=== PATIENT | male | born 1965 | race Two or more races ===

== ENCOUNTER 2019-02-07 20:45 | Inpatient (IN) | payer MEDICAID ==
[~2019-02-07] VITALS: Ht 165.1 cm; Wt 87.1 kg
[2019-02-07 20:56] VITALS: BP 122/79
--- NOTE | 2019-02-07 20:56 | NUR ---
TO BED # 04 AMBULATORY
--- NOTE | 2019-02-07 21:00 | NUR ---
PT CAME INTO ER WITH C/O RIGHT ARM PAIN AND CHEST PAIN X 2 HOURS. PT STATED HE HAS CARDIAC HX AND HAS HAD A FEW HEART ATTACKS WTHIN 20 YEARS. PT STATED HE A[place]O HAS STENTS PLACED IN HEART. PT IS ALERT AND ORIENTED X 4. PT STATES HIS AWILDA IS LEVEL 6/10 AND HAS PRESSURE IN THE LEFT SIDE OF CHEST. MED HX OF HYPERLIPIDEMIA, CARDIAC, AND DM. SKIN IS DRY AND WARM TO TOUCH, NO SIGN OF DIAPHORESIS OR SOB. LUNG SOUNDS CLEAR BILATERAL. ER MD MADE AWARE OF STATUS. SAFETY MEASURES IN PLACE.
[2019-02-07] MEDS ORDERED: NACL 0.9% 1,000 ML IV ONE (21:15)
[2019-02-07] MEDS ORDERED: ASPIRIN 81 MG TAB.CHEW PO ONE (21:15)
[2019-02-07] MEDS ORDERED: MORPHINE SULFATE 2 MG/ML SYR IVP ONE (21:15)
[2019-02-07] MEDS ORDERED: NITROGLYCERIN 2% 1 GM PKT TP ONE (21:15)
--- NOTE | 2019-02-07 21:35 | NUR ---
X-Ray at bedside.
[2019-02-07 21:53] LABS: BASOPHILS % (AUTO) 0.6 % (0.0-2.0); EOSINOPHILS # (AUTO) 0.3 K/uL (0-0.4); EOSINOPHILS % (AUTO) 3.3 % (0.0-4.0); HEMATOCRIT 41.7 % (36-52); HEMOGLOBIN 14.3 g/dL (12.0-18.0); LYMPHOCYTES # (AUTO) 2.8 K/uL (2.0-11.5); LYMPHOCYTES % (AUTO) 34.5 % (20.5-51.1); MEAN CORPUSCULAR HEMOGLOBIN 31 pg (27-31); MEAN CORPUSCULAR HGB CONC 34 g/dL (33-37); MEAN CORPUSCULAR VOLUME 89.9 fL (80-94); MONOCYTES # (AUTO) 0.5 K/uL (0.8-1.0); MONOCYTES % (AUTO) 6.7 % (1.7-9.3); NEUTROPHILS # (AUTO) 4.5 K/uL (1.8-7.7); NEUTROPHILS % (AUTO) 54.9 % (42.2-75.2); PLATELET COUNT (AUTO) 187 K/uL (140-450); RED BLOOD CELL COUNT(AUTO) 4.64 MIL/uL (4.20-6.10); RED CELL DISTRIBUTION WIDTH 15.2 % (11.6-13.7); WHITE BLOOD COUNT (AUTO) 8.1 K/uL (4.8-10.8)
[2019-02-07 22:03] LABS: ANION GAP 13.5 (8-16); CARBON DIOXIDE 27.2 mmol/L (21-32); CREATININE 1.1 mg/dL (0.7-1.3); POTASSIUM 3.7 mmol/L (3.5-5.1)
[2019-02-07 22:08] LABS: ALBUMIN 3.7 g/dL (3.4-5.0); PROTHROMBIN TIME 9.8 secs (10.8-13.4); TOTAL BILIRUBIN 0.2 mg/dL (0.0-1.0)
--- NOTE | 2019-02-07 22:20 | NUR ---
PT IS SITTING UP IN A CHAIR AT THE BEDSIDE. PT REFUSED TO GET BACK IN BED. PT WAS EDUCATED ON THE SIDE EFFECTS OF NARCOTICS. ER MD MADE AWARE. PT IS STABLE. DENIES DIZZINESS OR LIGHT HEADED.
[2019-02-07] MEDS ORDERED: KETOROLAC 30 MG/ML VIAL IVP ONE (22:25)
--- NOTE | 2019-02-07 22:29 | NUR ---
ASSUMED CARE OF PT FROM ANTHONY BAEZA.
[2019-02-07] MEDS ORDERED: AMLO10TA PO (22:32)
[2019-02-07] MEDS ORDERED: ISOS30TA23 PO (22:32)
[2019-02-07] MEDS ORDERED: METF500T2 PO (22:32)
[2019-02-07] MEDS ORDERED: ONDANSETRON 4 MG/2 ML VIAL IM/IVP PRN (22:45)
[2019-02-07] MEDS ORDERED: LORazepam 2 MG/ML VIAL IM/IVP PRN (22:45)
[2019-02-07] MEDS ORDERED: MORPHINE SULFATE 2 MG/ML SYR IVP PRN (22:45)
[2019-02-07] MEDS ORDERED: HYDROcodone/APAP 5/325 MG 1 TAB TAB PO PRN (22:45)
[2019-02-07] MEDS ORDERED: NACL 0.9% 1,000 ML IV SCH (22:45)
[2019-02-07] MEDS ORDERED: DOCUSATE SODIUM 100 MG GELCAP PO PRN (22:45)
[2019-02-07] MEDS ORDERED: ACETAMINOPHEN 325 MG TAB PO PRN (22:45)
--- NOTE | 2019-02-07 23:21 | NUR ---
PT ARRIVED AT UNIT VIA GURNEY, PT AMBULATED TO BED, TOLERATED WELL, NO DISTRESS NOTED, IV TO L FA 20G PATENT INTACT, INFUSING WELL, PT ON ROOM AIR, NO SOB NOTED, PT C/O PAIN, PER DR. PARIS VASQUES WILL TALK TO HIM FIRST BEFORE SHE ORDERS PAIN MEDICATION, INITIAL ASSESSMENT DONE, ALL SAFETY PRECAUTION MET, MRSA SWAB TAKEN, CALL LIGHT WITHIN REACH, WILL CONTINUE TO MONITOR.
--- NOTE | 2019-02-07 23:27 | NUR ---
Patient will be admitted to care of DR ABDUL. Admited to TELE. Will go to room 106-B. Belongings list completed. Report to ANTHONY SCHWAB.
[2019-02-07 23:40] VITALS: BP 103/51
[2019-02-07] MEDS ORDERED: INSULIN LISPRO SLIDING SCALE 100 UNITS/ML VIAL SUBQ PRN (23:40)
[2019-02-07] MEDS ORDERED: DEXTROSE 50% 50 ML SYR IVP PRN (23:40)
[2019-02-07 23:41] LABS: MAGNESIUM 1.8 mg/dL (1.8-2.4); PHOSPHORUS 5.2 mg/dL (2.5-4.9); THYROID STIMULATING HORMONE 2.12 uIU/mL (0.34-3.74)
[2019-02-07 23:46] LABS: APPEARANCE,URINE CLEAR (CLEAR); BILIRUBIN,URINE NEGATIVE (NEGATIVE); BLOOD, URINE NEGATIVE (NEGATIVE); COLOR,URINE YELLOW (YELLOW); LEUKOCYTE ESTERASE ,URINE NEGATIVE (NEGATIVE); NITRITE, URINE NEGATIVE (NEGATIVE); PH,URINE 5.5 (5.0-9.0); UGLUCOSE NEGATIVE (NEGATIVE)
[2019-02-07 23:49] LABS: BARBITURATE, URINE NEG. ng/ml (NEG <=200); BENZODIAZEPINE, URINE NEG. ng/mL (NEG <=200); CANNABINOID, URINE NEG. ng/mL (NEG <=50); COCAINE, URINE NEG. ng/mL (NEG <=300); OPIATE, URINE POS. ng/mL (NEG <=2000); PHENCYCLIDINE SCREEN,URINE NEG. ng/mL (NEG <=25)
[2019-02-08] MEDS ORDERED: MORPHINE SULFATE 2 MG/ML SYR IVP PRN (00:35)
--- NOTE | 2019-02-08 00:45 | NUR ---
PAIN MEDICATION ADMINISTERED PER DR. PARIS SHARPE TO GIVE MORPHINE 2MG AT THIS MOMENT, PT TOLERATED WELL, NO DISTRESS NOTED, CALL LIGHT WITHIN REACH, WILL CONTINUE TO MONITOR.
[2019-02-08] MEDS ORDERED: CLOP75TA26 PO (01:50)
[2019-02-08] MEDS ORDERED: RANO1000 PO (01:50)
--- NOTE | 2019-02-08 02:00 | NUR ---
PT LEFT AMA, DR. TOLEDO TALKED TO PT, ITZEL MCCALL TALKED TO PT, PT STILL INSISTED ON LEAVING AMA, IV TAKEN OUT, CATH INTACT, WRISTBANDS TAKEN OUT, PT LEFT UNIT WALKING IN STABLE CONDITION.
[2019-02-08] MEDS ORDERED: BLOOD GLUCOSE MONITORING 1 DEV DEV FS SCH (07:30)
[2019-02-08] MEDS ORDERED: metFORMIN 500 MG TAB PO SCH (08:00)
[2019-02-08] MEDS ORDERED: METOPROLOL 25 MG TAB PO SCH (09:00)
[2019-02-08] MEDS ORDERED: ASPIRIN 81 MG TAB.CHEW PO SCH (09:00)
[2019-02-08] MEDS ORDERED: LISINOPRIL 5 MG TAB PO SCH (09:00)
[2019-02-08] MEDS ORDERED: ATORVASTATIN 20 MG TAB PO SCH (09:00)
[2019-02-08] MEDS ORDERED: CLOPIDOGREL 75 MG TAB PO SCH (09:00)
[2019-02-08] MEDS ORDERED: RANOLAZINE 500 MG TER PO SCH (09:00)
== END 2019-02-08 01:30 | disposition left against medical advice (07) | DRG 243 ==
LOC: MED 20:45 → MTU 22:51
PROVIDERS: ADMIT General Practice; ATTEND General Practice
DX: K21.9 Gastro-esophageal reflux disease without esophagitis (principal); E11.9 Type 2 diabetes mellitus without complications; M94.0 Chondrocostal junction syndrome [Tietze]; I25.10 Atherosclerotic heart disease of native coronary artery without angina pectoris; E66.9 Obesity, unspecified; E78.5 Hyperlipidemia, unspecified; I10 Essential (primary) hypertension; F17.210 Nicotine dependence, cigarettes, uncomplicated; Z53.21 Procedure and treatment not carried out due to patient leaving prior to being seen by health care provider; I25.2 Old myocardial infarction; Z95.1 Presence of aortocoronary bypass graft; Z68.32 Body mass index [BMI] 32.0-32.9, adult
CPT/HCPCS: 36415; 71045; 80053; 80305; 81003; 82150; 83036; 83690; 83735; 83880; 84100; 84443; 84484; 85025; 85610; 85730; 87081; 96374; 96375; 99285; J1815; J1885; J2270; Q0092

== ENCOUNTER 2019-04-02 23:45 | Inpatient (IN) | payer MEDICAID ==
[~2019-04-02] VITALS: Ht 165.1 cm; Wt 86.2 kg
[~2019-04-02 23:45] MED LIST: AMLO10TA PO; CLOP75TA26 PO; ISOS30TA23 PO; METF500T2 PO; RANO1000 PO
[2019-04-02 23:50] VITALS: BP 148/79
--- NOTE | 2019-04-02 23:58 | NUR ---
PT AMBULATED TO ER BED 12
[2019-04-03] MEDS ORDERED: NITROGLYCERIN 0.4 MG TAB SL STA (00:01)
[2019-04-03] MEDS ORDERED: SODIUM CHLORIDE FLUSH 10 ML SYR IVF STA (00:01)
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
--- NOTE | 2019-04-03 00:15 | NUR ---
DR. WEBB EVALUATING AT BEDSIDE.
[2019-04-03] MEDS ORDERED: ONDANSETRON 4 MG/2 ML VIAL IVP ONE (00:20)
[2019-04-03] MEDS ORDERED: MORPHINE SULFATE 4 MG/ML SYR IVP ONE (00:20)
[2019-04-03] MEDS ORDERED: ASPIRIN 325 MG TAB PO ONE (00:20)
--- NOTE | 2019-04-03 00:22 | NUR ---
GEOTHERMAL OPERATING ENGINEER DRAWING LABS AT BEDSIDE.
--- NOTE | 2019-04-03 00:30 | NUR ---
XRAY AT BEDSIDE.
[2019-04-03 00:40] LABS: BASOPHILS # (AUTO) 0.1 K/uL (0.00-0.22); BASOPHILS % (AUTO) 0.6 % (0.0-2.0); EOSINOPHILS # (AUTO) 0.3 K/uL (0-0.4); EOSINOPHILS % (AUTO) 2.8 % (0.0-4.0); HEMATOCRIT 47.4 % (36-52); HEMOGLOBIN 16.4 g/dL (12.0-18.0); LYMPHOCYTES # (AUTO) 2.7 K/uL (2.0-11.5); LYMPHOCYTES % (AUTO) 28.4 % (20.5-51.1); MEAN CORPUSCULAR HEMOGLOBIN 32 pg (27-31); MEAN CORPUSCULAR HGB CONC 35 g/dL (33-37); MEAN CORPUSCULAR VOLUME 91.5 fL (80-94); MONOCYTES # (AUTO) 0.6 K/uL (0.8-1.0); MONOCYTES % (AUTO) 6.6 % (1.7-9.3); NEUTROPHILS # (AUTO) 5.9 K/uL (1.8-7.7); NEUTROPHILS % (AUTO) 61.6 % (42.2-75.2); PLATELET COUNT (AUTO) 184 K/uL (140-450); RED BLOOD CELL COUNT(AUTO) 5.18 MIL/uL (4.20-6.10); WHITE BLOOD COUNT (AUTO) 9.6 K/uL (4.8-10.8)
[2019-04-03 01:02] LABS: ANION GAP 16.3 (8-16); CARBON DIOXIDE 23.4 mmol/L (21-32); CREATININE 0.9 mg/dL (0.7-1.3); POTASSIUM 3.7 mmol/L (3.5-5.1)
[2019-04-03 01:07] LABS: TOTAL BILIRUBIN 0.2 mg/dL (0.0-1.0)
--- NOTE | 2019-04-03 01:25 | NUR ---
PT STATES "I HAVE A HIGH TOLERANCE TO THESE MEDICATIONS BECAUSE I AM IN THE HOSPITAL A LOT. THEY USUALLY GIVE ME DILUADID." DR. WEBB MADE AWARE.
[2019-04-03] MEDS ORDERED: MORPHINE SULFATE 2 MG/ML SYR IVP ONE (01:30)
[2019-04-03] MEDS ORDERED: diphenhydrAMINE 50 MG/ML VIAL IVP ONE (01:30)
--- NOTE | 2019-04-03 02:10 | NUR ---
PT SLEEPING DEEPLY IN BED. LOUD SNORING HEARD. VSS. AROUSABLE TO VERBAL STIMULI. SKIN PINK, WARM, DRY. BREATHING EVEN, UNLABORED.
[2019-04-03] MEDS ORDERED: LOSA100T51 PO (02:11)
[2019-04-03] MEDS ORDERED: FURO-572 PO (02:12)
[2019-04-03] MEDS ORDERED: CARV25TA PO (02:13)
[2019-04-03] MEDS ORDERED: NACL 0.9% 1,000 ML IV SCH (02:32)
[2019-04-03] MEDS ORDERED: ONDANSETRON 4 MG/2 ML VIAL IM/IVP PRN (02:35)
[2019-04-03] MEDS ORDERED: HYDROcodone/APAP 7.5/325 MG 1 TAB PO PRN (02:35)
[2019-04-03] MEDS ORDERED: DOCUSATE SODIUM 100 MG GELCAP PO PRN (02:35)
[2019-04-03] MEDS ORDERED: ACETAMINOPHEN 325 MG TAB PO PRN (02:35)
--- NOTE | 2019-04-03 02:50 | NUR ---
AWOKE PT FROM SLEEP TO LET KNOW WE ARE TRANSFERING TO FLOOR. PT STATES "MY PAIN IS WORSE. 02/06". WILL COMMUNICATE TO MST RN.
[2019-04-03] MEDS ORDERED: NITROGLYCERIN 0.4 MG TAB SL PRN (02:55)
[2019-04-03 03:00] VITALS: BP 138/86
--- NOTE | 2019-04-03 03:00 | NUR ---
RECEIVED BEDSIDE REPORT FROM TOOLMAKER GRADE THREE. PT IS AAOX4 ON ROOM AIR RESPIRATIONS ARE EQUAL AND UNLABORED. LUNG SOUNDS ARE CLEAR DENIES USE OF OXYGEN AT HOME. DENIES SOB. C/C CHEST PAIN SINCE 1899 ON 04/02 CURRENTLY -02/06 WILL F/U ON ORDERS. IV ON RAC 20 G SL. SKIN INTACT HAS Otilio SAINZ PT STATES PCP DOING STUDY TO R/O CANCER. PT AMBULATING. ORIENTED TO STAFF,ROOM,CALL LIGHT AND VISITING HOURS. VS: 138/86 94% RA, 75 17 97.8. POC DISCUSSED WITH PT,CALL LIGHT IS WITHIN REACH. WILL CONTINUE TO MONITOR.
--- NOTE | 2019-04-03 03:00 | NUR ---
Patient will be admitted to care of Dr. Aden. Admited to Telemetry. Will go to room 119. Belongings list completed. Report to ANTHONY Nation.
[2019-04-03] MEDS: HYDROmorphone PFS 2 MG/ML SYR IVP PRN ×2 (03:28→10:15)
--- NOTE | 2019-04-03 03:28 | NUR ---
ADMINISTERED DILAUDID IVP FOR CHEST PAIN 01/06. SAFETY MEASURES ARE IN PLACE. CALL LIGHT IS WITHIN REACH. WILL CONTINUE TO MONITOR.
[2019-04-03 03:45] LABS: PROTHROMBIN TIME 9.5 secs (10.8-13.4)
[2019-04-03 03:47] LABS: FREE T4 (FREE THYROXINE) 0.93 ng/dL (0.76-1.46); MAGNESIUM 1.9 mg/dL (1.8-2.4); PHOSPHORUS 4.1 mg/dL (2.5-4.9); THYROID STIMULATING HORMONE 2.67 uIU/mL (0.34-3.74)
--- NOTE | 2019-04-03 04:21 | NUR ---
PATIENT IS SLEEPING COMFORTABLY IN BED. CHEST RISE AND FALL. NO S/S OF DISTRESS. SAFETY MEASURES ARE IN PLACE. CALL LIGHT IS WITHIN REACH WILL CONTINUE TO MONITOR.
[2019-04-03] MEDS ORDERED: INSULIN LISPRO SLIDING SCALE 100 UNITS/ML VIAL SUBQ PRN (04:55)
--- NOTE | 2019-04-03 06:28 | NUR ---
BLOOD SUGAR IS 199 REQUIRES 2U OF INSULIN PER SLIDING SCALE PT IS REFUSED. EDUCATED PT ON NEED OF BLOOD SUGAR CONTROL STATES HE ONLY WANTS METFORMIN AT 0800 AND THEY CAN RECHECK BLOOD SUGAR AGAIN LATER. NO S/S OF DISTRESS. CALL LIGHT IS WITHIN REACH.
--- NOTE | 2019-04-03 07:21 | NUR ---
GAVE BEDSIDE REPORT TO DAY SHIFT RN. PT ENDORSED IN STABLE CONDITION.
--- NOTE | 2019-04-03 07:25 | NUR ---
RECEIVED BEDSIDE REPORT FROM NIGHT NURSE. PT IN STABLE CONDITION, SLEEPING. NO DISTRESS NOTED. IV SIGHT INTACT AND INFUSING PER ORDER IN R AC 20G. SKIN INTACT. RESPIRATIONS EVEN AND UNLABORED ON ROOM AIR. BED IN LOW POSITION. SAFETY MEASURES IN PLACE. CALL LIGHT WITHIN REACH. WILL CONTINUE TO MONITOR.
[2019-04-03] MEDS ORDERED: BLOOD GLUCOSE MONITORING 1 DEV DEV FS SCH (07:30)
[2019-04-03 08:00] VITALS: BP 142/58
[2019-04-03] MEDS ORDERED: metFORMIN 500 MG TAB PO SCH (08:00)
--- NOTE | 2019-04-03 08:30 | NUR ---
MEDICATIONS ADMINISTERED PER ORDER. PT TOLERATED WELL, NO DISTRESS NOTED. WILL CONTINUE TO MONITOR.
[2019-04-03] MEDS ORDERED: LOSARTAN 50 MG TAB PO SCH (09:00)
[2019-04-03] MEDS ORDERED: ASPIRIN 81 MG TAB.CHEW PO SCH (09:00)
[2019-04-03] MEDS ORDERED: amLODIPine 5 MG TAB PO SCH (09:00)
[2019-04-03] MEDS ORDERED: FUROSEMIDE 20 MG TAB PO SCH (09:00)
[2019-04-03] MEDS ORDERED: METOPROLOL 25 MG TAB PO SCH (09:00)
[2019-04-03] MEDS ORDERED: CARVEDILOL 12.5 MG TAB PO SCH (09:00)
[2019-04-03] MEDS ORDERED: LISINOPRIL 10 MG TAB PO SCH (09:00)
[2019-04-03] MEDS ORDERED: RANOLAZINE 500 MG TER PO SCH (09:00)
[2019-04-03] MEDS ORDERED: CLOPIDOGREL 75 MG TAB PO SCH (09:00)
--- NOTE | 2019-04-03 10:15 | NUR ---
PRN DILAUDID GIVEN TO PT FOR PAIN MANAGEMENT. TOLERATED WELL. WILL CONTINUE TO MONITOR.
--- NOTE | 2019-04-03 10:35 | NUR ---
PT WANTS TO LEAVE AMA. PT SAYS HE HAS A FAMILY EMERGENCY TO ATTEND TO. NOTIFIED DR. TOLEDO. DR TOLEDO AT BEDSIDE EXPLAINING RISKS OF LEAVING AMA. PT VERBALIZES UNDERSTANDING AND CONTINUES TO WANT TO LEAVE AMA DESPITE RISKS. AMA PAPERS SIGNED. IV SIGHT REMOVED WITH MINIMAL BLOOD AND LUMEN COMPLETELY INTACT. ID BANDS REMOVED. PT LEFT AMA AT THIS TIME.
[2019-04-03 12:16] LABS: APPEARANCE,URINE CLEAR (CLEAR); BILIRUBIN,URINE NEGATIVE (NEGATIVE); BLOOD, URINE NEGATIVE (NEGATIVE); COLOR,URINE YELLOW (YELLOW); LEUKOCYTE ESTERASE ,URINE NEGATIVE (NEGATIVE); NITRITE, URINE NEGATIVE (NEGATIVE); UGLUCOSE NEGATIVE (NEGATIVE)
[2019-04-03 12:37] LABS: BARBITURATE, URINE NEGATIVE ng/ml (NEG <=200); BENZODIAZEPINE, URINE NEGATIVE ng/mL (NEG <=200); CANNABINOID, URINE NEGATIVE ng/mL (NEG <=50); COCAINE, URINE NEGATIVE ng/mL (NEG <=300); OPIATE, URINE POSITIVE ng/mL (NEG <=2000); PHENCYCLIDINE SCREEN,URINE NEGATIVE ng/mL (NEG <=25)
[2019-04-03 13:02] LABS: CALCIUM OXALATE CRYSTALS,UR 0-10 /HPF (None Seen); RBC,URINE NONE SEEN /HPF (0-5); WBC,URINE NONE SEEN /HPF (0-5)
[2019-04-04 08:06] LABS: T4 (THYROXINE) 6.9 ug/dL (4.5-12.0)
== END 2019-04-03 10:35 | disposition left against medical advice (07) | DRG 243 ==
LOC: MED 23:45 → MTU 04-03 02:35
PROVIDERS: ADMIT Family Medicine; ATTEND Family Medicine
DX: K21.9 Gastro-esophageal reflux disease without esophagitis (principal); D68.59 Other primary thrombophilia; I24.9 Acute ischemic heart disease, unspecified; M94.0 Chondrocostal junction syndrome [Tietze]; I10 Essential (primary) hypertension; E11.9 Type 2 diabetes mellitus without complications; E78.5 Hyperlipidemia, unspecified; E66.9 Obesity, unspecified; Z53.21 Procedure and treatment not carried out due to patient leaving prior to being seen by health care provider; F17.210 Nicotine dependence, cigarettes, uncomplicated; I25.10 Atherosclerotic heart disease of native coronary artery without angina pectoris; Z95.1 Presence of aortocoronary bypass graft; Z95.5 Presence of coronary angioplasty implant and graft; Z79.899 Other long term (current) drug therapy; I25.2 Old myocardial infarction; Z68.31 Body mass index [BMI] 31.0-31.9, adult
CPT/HCPCS: 36415; 71045; 80053; 80305; 81001; 82150; 82948; 83605; 83690; 83735; 83880; 84100; 84436; 84439; 84443; 84479; 84484; 85025; 85610; 85730; 87081; 93005; 96374; 96375; 96376; 99285; J1170; J1200; J2270; J2405; J7030; Q0092